=== PATIENT | female | born 1980 | race Caucasian/White ===

== ENCOUNTER 2020-10-08 19:22 | Emergency (ER) | payer BC, SELFPAY ==
--- NOTE | ~2020-10-08 | CT_ITS ---
EXAMINATION: CT ABDOMEN AND PELVIS WITH CONTRAST CLINICAL INFORMATION: Right lower quadrant pain COMPARISON: CT of the chest abdomen pelvis 12/29/2018 TECHNIQUE: Multidetector volumetric images were obtained from the superior aspect of the liver through the pubic symphysis following administration 85 mL of Omnipaque 350 intravenous contrast. Sagittal and coronal reformatted images were obtained on the technologist's workstation. Oral contrast: No This CT examination was performed using dose optimization techniques as appropriate, variously including the following: *Automated exposure control *Adjustment of mA and/or kV according to patient size (this includes techniques or standardized protocols for targeted exams where dose is matched to indication/reason for exam; i.e. extremities or head) *Use of iterative reconstruction technique DLP: 538 mGy-cm FINDINGS: LUNG BASES: The visualized lung bases are unremarkable. LIVER, GALLBLADDER, AND BILIARY TREE: The liver is normal in size, shape, and attenuation. No focal hepatic lesion or biliary ductal dilatation is present. The gallbladder is unremarkable with no evidence of radiopaque gallstones, gallbladder wall thickening, or obvious pericholecystic inflammatory changes. PANCREAS: Unremarkable. SPLEEN: Unremarkable. ADRENAL GLANDS: Unremarkable. KIDNEYS AND URETERS: The kidneys are normal in size, shape, and attenuation. No hydronephrosis, hydroureter, or calculi seen. No perinephric stranding. BLADDER: Unremarkable. GASTROINTESTINAL TRACT: No acute abnormality. There is no bowel wall thickening /edema. There is no bowel obstruction. The cecum is mobile flipped under the hepatic flexure but there is no mesenteric twist or volvulus. There is a moderate to large volume of stool in the colon. The appendix is normal. The small bowel loops are unremarkable. The stomach is normal. There is no hiatal hernia. ABDOMINAL WALL: No significant hernia is appreciated. LYMPH NODES: Normal. VASCULAR: Unremarkable. PELVIC VISCERA: Unremarkable. OSSEOUS STRUCTURES: Unremarkable. CT/CT abdomen pelvis w con IMPRESSION: No acute abnormality CT scan abdomen pelvis.
[2020-10-08 19:37] VITALS: BP 164/96; PULSE 73; RESP 18; TEMP 36.9; O2SAT 96; BMI 26.9
--- NOTE | 2020-10-08 21:23 | ED.ABDPAIN ---
HPI - Abdominal Pain General Chief Complaint: Abdominal Pain Stated Complaint: pelvic pain Time Seen by Provider: 10/08/20 20:55 Source: patient Mode of arrival: ambulatory Limitations: no limitations History of Present Illness HPI narrative: Patient comes emergency room complaining of right lower quadrant pain. Patient states that the pain started 4 days ago in the left lower quadrant, states she was doing squats, she thinks she pulled a muscle. Patient was starting to heal. However, today, patient went back to the gym, she did a Burpee, when she extended her legs backwards, she felt an intense sharp right lower quadrant pain. Patient states that she has been nauseous, denies any vomiting diarrhea, reporting 10/10 pain in the right lower quadrant. MD elicited complaint: abdominal pain Related Data Previous Rx's Medication Instructions Recorded baclofen 10 mg PO TID PRN #10 tab 10/08/20 tramadol 50 mg PO Q8H PRN #10 tab 10/08/20 Allergies Allergy/AdvReac Type Severity Reaction Status Date / Time ibuprofen Allergy Hives Verified 10/08/20 19:42 Review of Systems Review of Systems Constitutional : No Weight loss, No Fever, No Chills, No Night Sweats, No Fatigue, No Malaise ENT/Mouth : No Hearing loss, No Ear Pain, No Nasal Congestion, No Sinus Pain, No Hoarseness, No sore throat, No Rhinorrhea, No Swallowing Difficulty Eyes: No Eye Pain, No Swelling, No Redness, No Foreign Body, No Discharge, No Vision Changes Cardiovascular : No Chest Pain, No SOB, No Dyspnea on Exertion, No Orthopnea, No Edema, No Palpitations Respiratory : No Cough, No Sputum, No Wheezing, No Smoke Exposure, No Dyspnea Gastrointestinal : Complaining of Nausea, No Vomiting, No Diarrhea, No Constipation, complaining of right lower quadrant pain, seems worse with any movement., No Hematochezia, No Melena Genitourinary : no irregular bleeding, No Dysuria, No Urinary Frequency, No Hematuria, No Urinary Incontinence, No Urgency, No Flank Pain, No Urinary Flow Changes, No Hesitancy Musculoskeletal : No joint pain, No Myalgias, No Joint Swelling Skin : No Skin Lesions, No rash Neuro : No Weakness, No Numbness, No Paresthesias, No Loss of Consciousness, No Dizziness, No Headache Psych : No Anxiety/Panic, No Depression, No SI/HI/AH/VH, No Social Issues, Heme/Lymph: No Bruising, No Bleeding,No Lymphadenopathy Endocrine : No Polyuria, No Polydipsia, No Temperature Intolerance Physical Exam Vital Signs: Vital Signs: Last Vital Signs Temp 98.4 F 10/08/20 19:37 Pulse 73 10/08/20 19:37 Resp 18 10/08/20 19:37 BP 164/96 H 10/08/20 19:37 Pulse Ox 96 10/08/20 19:37 Body Mass Index 26.9 Appearance: Alert. Oriented X3. No acute distress. Eyes: Pupils equal, round and reactive to light. ENT: Pharynx normal. Neck: Normal inspection. Neck supple. No lymph nodes noted. No crepitus CVS: Normal heart rate and rhythm. Pulses normal. Normal S1 and S2 Respiratory: No respiratory distress. Breath sounds normal. No Wheezing. No rales Abdomen: Soft and nontender. No rigidity. No distention. good BS x4 Skin: Skin warm and dry. Normal skin color. Normal skin turgor. Extremities: No lower extremity edema. No lower extremity edema. No Lacerations. No Rash Neuro: Oriented X 3. No motor deficit. No sensory deficit. Moving all extermities. No slurred speech. Course Course Course Narrative: Patient is feeling better, no acute findings on the CT scan. Patient likely has a musculoskeletal injury. MDM - Abdominal Pain Lab Data Result diagrams: 10/08/20 21:38 10/08/20 21:38 Labs: Lab Results 10/08/20 10/08/20 Range/Units 21:38 21:38 WBC 10.7 (4.8-10.8) X10*3/uL RBC 4.10 L (4.20-5.50) X10*6/uL Hgb 12.9 (12.0-16.0) g/dl Hct 38.0 (37-47) % MCV 92.7 (80-98) fL MCH 31.5 (27.0-33.0) pg MCHC 33.9 (31.0-35.0) g/dl RDW 12.1 (11.0-16.0) % Plt Count 291 (160-400) X10*3/uL MPV 10.2 (9.4-12.3) fL Immature Gran % (Auto) 0.3 (0.0-0.4) % Neut % (Auto) 74.4 H (45-73) % Lymph % (Auto) 17.4 L (20-40) % [place] % (Auto) 6.7 (2-11) % Eos % (Auto) 0.9 (0-4) % Baso % (Auto) 0.3 (0-2) % Lymph # (Auto) 1.9 (1.2-4.9) X10*3/uL [place] # (Auto) 0.7 (0.1-1.2) X10*3/uL Eos # (Auto) 0.1 (0.0-0.4) X10*3/uL Baso # (Auto) 0.0 (0.0-0.2) X10*3/uL Abs Immat Gran (auto) 0.03 (0.00-0.03) X10*3/uL Absolute Neuts (auto) 8.0 (2.0-8.3) X10*3/uL Absolute Nucleated RBC 0.000 (0.0-0.012) X10*3/uL Nucleated RBC % (auto) 0.0 (0.0-0.2) /100WBC Sodium 139 (135-145) mmol/L Potassium 4.1 (3.3-5.1) mmol/L Chloride 108 (96-108) mmol/L Carbon Dioxide 22 (22-29) mmol/L Anion Gap 13 (12-20) BUN 16 (9-16) mg/dL Creatinine 0.78 (0.5-1.4) mg/dL Estim Creat Clear Calc 85.0 Estimated GFR > 60 Random Glucose 88 (60-115) mg/dL Calcium 9.2 (8.4-10.2) mg/dL Total Bilirubin 0.4 (0.0-1.0) mg/dL Direct Bilirubin 0.2 (0.0-0.5) mg/dL AST 32 H (5-31) U/L ALT 44 H (0-31) U/L Alkaline Phosphatase 61 (39-117) U/L Total Protein 6.6 (6.5-8.0) g/dL Albumin 4.0 (3.5-5.0) g/dL Beta HCG, Quant < 2 mIU/mL Discharge Plan Discharge Clinical Impression: Abdominal muscle strain Qualifiers: Encounter type: initial encounter Qualified Code(s): S39.011A - Strain of muscle, fascia and tendon of abdomen, initial encounter Patient Disposition: Home, Self-Care Instructions: Muscle Strain (ED) Additional Instructions: Please follow-up with your primary care physician tomorrow. If you have any worsening or new symptoms, please return to the emergency room or call 911 Prescriptions: New tramadol 50 mg tablet 50 mg PO Q8H PRN (Reason: pain) Qty: 10 RF: 0 baclofen 10 mg tablet 10 mg PO TID PRN (Reason: muscle pain) Qty: 10 RF: 0 PMFSH Past Medical History Medical History H/O fracture of humerus Migraine Surgical History H/O tubal ligation Social History Social History Advance Directives: No Advance Directives Information Provided: No Patient : No
[2020-10-08 21:43] LABS: Basophils Percent Auto 0.3 % (0-2); Eosinophils Absolute Auto 0.1 X10*3/uL (0.0-0.4); Eosinophils Percent Auto 0.9 % (0-4); Hemoglobin 12.9 g/dl (12.0-16.0); Imm Gran Abs Auto 0.03 X10*3/uL (0.00-0.03); Imm Gran Pct Auto 0.3 % (0.0-0.4); Lymphocytes Absolute Auto 1.9 X10*3/uL (1.2-4.9); Lymphocytes Percent Auto 17.4 % (20-40); MANUAL DIFF FLAG NO; Mean Corpuscular HGB Conc 33.9 g/dl (31.0-35.0); Mean Corpuscular Hemoglobin 31.5 pg (27.0-33.0); Mean Corpuscular Volume 92.7 fL (80-98); Mean Platelet Volume 10.2 fL (9.4-12.3); Monocytes Absolute Auto 0.7 X10*3/uL (0.1-1.2); Monocytes Percent Auto 6.7 % (2-11); Neutrophils Percent Auto 74.4 % (45-73); Platelet Count 291 X10*3/uL (160-400); Red Cell Distribution Width 12.1 % (11.0-16.0); White Blood Count 10.7 X10*3/uL (4.8-10.8)
[2020-10-08] MEDS: Morphine Sulfate 4 MG/ML CARTRIDGE IVPUSH (21:45)
[2020-10-08] MEDS: ondansetron HCL 4 MG/2 ML VIAL IVPUSH (21:45)
[2020-10-08 22:10] LABS: Alanine Aminotransferase 44 U/L (0-31); Alkaline Phosphatase 61 U/L (39-117); Anion Gap 13 (12-20); Aspartate Amino Transferase 32 U/L (5-31); Bilirubin Direct 0.2 mg/dL (0.0-0.5); Bilirubin Total 0.4 mg/dL (0.0-1.0); Blood Urea Nitrogen 16 mg/dL (9-16); Calcium 9.2 mg/dL (8.4-10.2); Carbon Dioxide 22 mmol/L (22-29); Chloride 108 mmol/L (96-108); Estimated Glomerular Filt Rate > 60; Glucose Random 88 mg/dL (60-115); Potassium 4.1 mmol/L (3.3-5.1); Sodium 139 mmol/L (135-145); Total Protein 6.6 g/dL (6.5-8.0)
[2020-10-08 23:21] LABS: HCG Quantitative < 2 mIU/mL
[2020-10-08] MEDS: iohexoL 350 MG/ML 100 ML INFUS..BTL 85 ML IV (23:22)
== END 2020-10-09 00:04 | disposition home or self-care (01) ==
PROVIDERS: Emergency Provider Emergency Medicine
DX: S39.011A Strain of muscle, fascia and tendon of abdomen, initial encounter (principal); X58.XXXA Exposure to other specified factors, initial encounter; Y93.B9 Activity, other involving muscle strengthening exercises; Y92.9 Unspecified place or not applicable; Y99.9 Unspecified external cause status
CPT/HCPCS: 36415; 74177; 80048; 80076; 84702; 85025; 96374; 96375; 99283; 99284; J2270; J2405; Q9967

== ENCOUNTER 2022-11-02 13:25 | Outpatient (AMB) | payer BC, SELFPAY ==
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
[2022-11-02 13:39] VITALS: BP 138/94; PULSE 76; O2SAT 99; BMI 27.5
== END 2022-11-02 14:31 | disposition home or self-care (01) ==
PROVIDERS: Visit Provider Nurse Practitioner Family
DX: G43.109 Migraine with aura, not intractable, without status migrainosus (principal); G43.009 Migraine without aura, not intractable, without status migrainosus; G47.9 Sleep disorder, unspecified; I10 Essential (primary) hypertension
CPT/HCPCS: 99204

== ENCOUNTER → 2022-11-02 13:25 | Outpatient (BNVA) | payer BC, SELFPAY | PROVIDERS: Visit Provider Nurse Practitioner Family ==

== ENCOUNTER 2023-02-09 14:02 | Outpatient (AMB) | payer BC, SELFPAY ==
--- NOTE | 2023-02-09 14:03 | MHC.OFFVIS ---
Intake Vital Signs 02/09/23 14:08 Height 5 ft 2 in Weight 153 lb BMI 28.0 BP 152/104 H Blood Pressure Location Rt brachial Position Sitting Pulse 103 H Pulse Source Pulse Oximeter Pulse Oximetry (%) 99 Oxygen Delivery Method Room Air Intake Visit Reasons: 3m follow up Worsening Migraines-LVM Intake Note: Patient presents for 3 month follow up worsening migraines Patient states I went a month a half with one,last one was 3 days ago. Allergies Seasonal Allergies Allergy (Unknown, Verified 02/09/23 14:10) Swelling ibuprofen Allergy (Verified 02/09/23 14:10) Hives Medication List - Last Reconciled 02/09/23 by CRISTINA Orona eletriptan take 1 tab at onset of headache; if no relief, may repeat 1 tab after at least 2 hrs; max = 2 tabs/24 hrs orally PRN; 30 days erenumab-aooe (Aimovig Autoinjector) 140 mg subcut ONCE 30 days rimegepant (Nurtec ODT) 75 mg PO ONCE PRN 30 days rizatriptan 5 - 10 mg (0.5 - 1 x 10 mg) PO Q2H PRN 21 days sumatriptan succinate 0 mg PO verapamil ER 100 mg PO BEDTIME 30 days zolmitriptan (Zomig) take 1 tab at onset of headache; if no relief, may repeat 1 tab after at least 2 hrs; max = 2 tabs/24 hrs PO 21 days HPI HPI Comments History of Present Illness Details 42-yr-old female presents for f/u visit. Pt denies any significant interval medical changes. Pt reports that she has had 5 migraine days in the last month. Pt was on Trudhessa sample in early Sep for prolonged migarine attack, not responsive to her usual Rizatriptan. Trudhessa was effective. Pt was also started on Nurtec, which is usually helpful, but not always. Today, she reports she believes she has identified a strong migraine trigger. She reports she is prone to developing acne that never ruptures/expresses. She describes specifically developing large, red, painful lumps near bilateral peak regions, which can last for days to weeks. She once had one acne in her forehead that she attempted to pop/express. She was not able to pop it but trying to express it caused her to develop a cellulitis. These lesions are often a/w more severe headache. She states she also is prone to allergic skin reactions on her buttocks, which she attributes to her fabric softener use. 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 [facility] Medical History (Updated 02/09/23 @ 14:33 by CRISTINA Orona) Erythema nodosum Depression H/O fracture of humerus Migraine Surgical History History of surgery on arm Hx of tonsillectomy H/O tubal ligation Family History Mother Hypertension Rheumatoid arthritis Vaginal cancer Father Myocardial infarction Hypertension Hyperlipidemia Maternal Grandmother Rheumatoid arthritis Dementia Maternal Grandfather COPD (chronic obstructive pulmonary disease) Paternal Grandfather CHF (congestive heart failure) Social History Alcohol intake: current Alcohol intake frequency: a few times a month Patient Tobacco Use Status: Former Tobacco user Substance Use Type: Marijuana Review of Systems Const All systems reviewed & are unremarkable except as noted in HPI and below Physical Exam Vital Signs: Last Vital Signs Pulse 103 H 02/09/23 14:08 BP 152/104 H 02/09/23 14:08 Pulse Ox 99 02/09/23 14:08 Oxygen Delivery Method Room Air 02/09/23 14:08 BMI result Body Mass Index 28.0 Const General: cooperative and no acute distress Orientation/consciousness: patient oriented x3 HEENT Head: Yes normocephalic Resp Effort & Inspection: normal respiratory effort and able to speak in complete sentences Neuro General: patient oriented x3, gait normal and CN's II-XI intact bilaterally Cognition (Neuro): normal cognition Motor exam (neuro): 5/5 motor strength present throughout Psych Appearance: grossly normal Mental Status: mental status grossly normal Speech and movement: Normal speech and movement present Affect: normal affect Attitude: cooperative Thought process: Normal thought process present Thought content: Normal thought content present Insight: Good insight present (Psych) Judgement: Good judgement present (Psych) Assessment & Plan Assessment & Plan (1) Acne: Code(s): L70.9 - Acne, unspecified Plan For skin issues- will request derm consult. For overall headache management: Discussed importance of good self-care, including but not limited to maintaining a healthy diet, adequate fluid intake, adequate sleep, and engaging in regular physical activity. For headache triggers: Track headaches, especially after any treatment regimen changes. [employer] is one of many headache tracking apps. ? For acute headache treatment: Rizatriptan 10mg tab. Nurtec ODT 75mg Nerivio device Previous acute migraine medication trials: Sumatriptan 50mg- ineffective Acute migraine medication contraindications: None at this time ? For headache prevention medication: Verapamil ER 100mg qhs. Will check EEG priror to dose any future increase. Continue Aimovig 140mg sc q month Previous migraine prevention medication trials: Amitriptyline- ineffective, Propranolol- ineffective, Topiramate- ineffective Migraine prevention medication contraindications: None at this time ? ? Pt to follow-up in 3 months or sooner prn. Orders: Referrals Dermatology Referral L52 - Erythema nodosum, L70.9 - Acne, unspecified Medications: New dihydroergotamine (Trudhesa) 1 actuation in each nostril x1, may repeat x's 1 after 1 hr (max 4 actuations per day, or 6 per week) intranasally once PRN; 1 actuation in each nostril x1, may repeat x's 1 after 1 hr (max 4 actuations per day, or 6 per week) 28 days 4 mL 6RF migraine headache Coding Level of Care Code Est Pt Level 4 (69059) Diagnoses Acne L70.9
[2023-02-09 14:08] VITALS: BP 152/104; PULSE 103; O2SAT 99; BMI 28.0
== END 2023-02-09 14:47 | disposition home or self-care (01) ==
PROVIDERS: PCP Internal Medicine; Visit Provider Nurse Practitioner Family
DX: L70.9 Acne, unspecified (principal)
CPT/HCPCS: 99214

== ENCOUNTER → 2023-02-09 14:02 | Outpatient (BNVA) | payer BC, SELFPAY | PROVIDERS: PCP Internal Medicine; Visit Provider Nurse Practitioner Family ==

== ENCOUNTER 2023-02-10 08:34 | Outpatient (REF) | payer BC, SELFPAY ==
--- NOTE | ~2023-02-10 | MR_ITS ---
EXAMINATION: MR BRAIN WITHOUT CONTRAST CLINICAL INFORMATION: Headache COMPARISON: None. TECHNIQUE: MRI of the brain was obtained using routine sequences without contrast. FINDINGS: No acute infarct. No acute intracranial hemorrhage or extra-axial fluid collection. The ventricles and sulci are normal in size and configuration without significant volume loss or hydrocephalus. Single punctate T2 FLAIR hyperintense focus in the left frontal deep white matter of no clinical significance. No mass lesion, mass effect, or herniation pattern. Normal intracranial arterial and dural venous sinus flow voids. Normal appearance of the midline structures. Susceptibility artifact presumably from mascara obscures assessment of the globes Trace ethmoid air cell mucosal thickening. No mastoid effusion. Proteinaceous retention cyst in the right paramidline nasopharynx embedded within adenoidal tonsillar tissue. Normal marrow signal. MR/MR head/brain wo con IMPRESSION: Unremarkable brain MRI.
== END 2023-02-10 08:35 | disposition home or self-care (01) ==
LOC: HO.MRI 08:34
PROVIDERS: PCP Internal Medicine; Visit Provider Nurse Practitioner Family
DX: R51.9 Headache, unspecified (principal); I10 Essential (primary) hypertension
CPT/HCPCS: 70551

== ENCOUNTER 2023-06-14 14:42 | Outpatient (AMB) | payer BC, SELFPAY ==
--- NOTE | 2023-06-14 14:43 | A.OFFVIS_ITS ---
Intake Intake Visit Reasons: 3m follow up Worsening Migraines-Confirmed Intake Note: Patient states she still getting migraines but not as often Allergies Seasonal Allergies Allergy (Unknown, Verified 06/14/23 14:44) Swelling ibuprofen Allergy (Verified 06/14/23 14:44) Hives Medication List - Last Reconciled 06/14/23 by CRISTINA Orona dihydroergotamine (Trudhesa) 1 actuation in each nostril x1, may repeat x's 1 after 1 hr (max 4 actuations per day, or 6 per week) intranasally once PRN; 1 actuation in each nostril x1, may repeat x's 1 after 1 hr (max 4 actuations per day, or 6 per week) 28 days eletriptan take 1 tab at onset of headache; if no relief, may repeat 1 tab after at least 2 hrs; max = 2 tabs/24 hrs orally PRN; 30 days erenumab-aooe (Aimovig Autoinjector) 140 mg subcut ONCE 30 days rimegepant (Nurtec ODT) 75 mg PO ONCE PRN 30 days rizatriptan 5 - 10 mg (0.5 - 1 x 10 mg) PO Q2H PRN 21 days sumatriptan succinate 0 mg PO verapamil ER 100 mg PO BEDTIME 30 days zolmitriptan (Zomig) take 1 tab at onset of headache; if no relief, may repeat 1 tab after at least 2 hrs; max = 2 tabs/24 hrs PO 21 days HPI HPI Comments History of Present Illness Details 42-yr-old female presents for f/u televi giancarlo visit via [facility]. Pt denies any significant interval medical changes. Pt is having 1-2 migraine days per week. She still feels these are triggered by her facial/scalp/forehead acne/lesions. Notes a h/o sarcoidosis. Has dermatology consult in June. She is scheduled for retention cyst in the right paramidline nasopharynx embedded within adenoidal tonsillar tissue. Compliant w/ B2 and Mag. She is using Sumatriptan- helps if taken at the 1st sign. Trudhessa was very effective. She did stop the Aimovig- unsure if it was very effective and cost was $105/month. Her PCP changed her Verapamil to Lisinopril as her BP has been elevated. BP r unning 130-140s/90s. Baseline headache characteristics: Prodrome: Photophobia, strange taste in her mouth- hours before the headache Aura: Several times has seen orbs Severe, Throbbing, Mid-frontal and eye pain a/w photophobia, phonophobia, nausea, vomiting, brain fog, activity intolerance, fatigue ] [facility] Medical History (Updated 03/23/23 @ 08:07 by CRISTINA Orona) Erythema nodosum Depression H/O fracture of humerus Migraine Surgical History History of surgery on arm Hx of tonsillectomy H/O tubal ligation Family History Mother Hypertension Rheumatoid arthritis Vaginal cancer Father Myocardial infarction Hypertension Hyperlipidemia Maternal Grandmother Rheumatoid arthritis Dementia Maternal Grandfather COPD (chronic obstructive pulmonary disease) Paternal Grandfather CHF (congestive heart failure) Social History Alcohol intake: current Alcohol intake frequency: a few times a month Patient Tobacco Use Status: Former Tobacco user Substance Use Type: Marijuana Physical Exam Const General: cooperative and no acute distress Orientation/consciousness: patient oriented x3 Resp Effort & Inspection: normal respiratory effort and able to speak in complete sentences Neuro General: patient oriented x3 Cognition (Neuro): normal cognition Psych Appearance: grossly normal Mental Status: mental status grossly normal Speech and movement: Normal speech and movement present Affect: normal affect Attitude: cooperative Assessment & Plan Assessment & Plan (1) Migraine without aura: Code(s): G43.009 - Migraine without aura, not intractable, without status migrainosus (2) Migraine with aura: Code(s): G43.109 - Migraine with aura, not intractable, without status migrainosus (3) HTN (hypertension): Code(s): I10 - Essential (primary) hypertension (4) Acne: Code(s): L70.9 - Acne, unspecified (5) Cyst of nasopharynx: Comment: Proteinaceous retention cyst in the right paramidline nasopharynx embedded within adenoidal tonsillar tissue Code(s): J39.2 - Other diseases of pharynx Plan For skin issues- derm consult. ? For overall headache management: Continue to optimize good self-care, including but not limited to maintaining a healthy diet, adequate fluid intake, adequate sleep, and engaging in regular physical activity. For headache triggers: Track headaches, especially after any treatment regimen changes. Migraine [employer] is one of many headache tracking apps. ? For acute headache treatment: Sumatriptan prn. Rizatriptan 10mg tab. Nurtec ODT 75mg Nerivio device Hold Trudhessa or other DHE tx at this time until BP is better controlled. Previous acute migraine medication trials: Sumatriptan 50mg- ineffective Acute migraine medication contraindications: None at this time ? For headache prevention medication: Pt stopped Verapamil ER 100mg qhs. Continue Lisinopril per PCP. Continue Vitamin B2 and Mag. Hold Aimovig 140mg sc q month- not effective after 3 months. Previous migraine prevention medication trials: Amitriptyline- ineffective, Propranolol- ineffective, Topiramate- ineffective Migraine prevention medication contraindications: None at this time Future considerations- CGRP receptor agonsit MaB, Vyepti, Botox. ? ?Pt to follow-up in 3 months or sooner prn. Medications: New lisinopril PO Discontinued erenumab-aooe (Aimovig Autoinjector) Discontinued Reason: Patient no longer taking 140 mg subcut ONCE 30 days 1 mL 6RF zolmitriptan (Zomig) Discontinued Reason: Patient no longer taking take 1 tab at onset of headache; if no relief, may repeat 1 tab after at least 2 hrs; max = 2 tabs/24 hrs PO 21 days 12 tabs 3RF verapamil ER Discontinued Reason: Doctor's Order 100 mg PO BEDTIME 30 days 30 caps 3RF eletriptan Discontinued Reason: Doctor's Order take 1 tab at onset of headache; if no relief, may repeat 1 tab after at least 2 hrs; max = 2 tabs/24 hrs orally PRN; 30 days 12 tabs 3RF migraine headache rimegepant (Nurtec ODT) max 1 tab per day Discontinued Reason: Patient no longer taking 75 mg PO ONCE 30 days PRN 16 tabs 6RF migraine headache dihydroergotamine (Trudhesa) Discontinued Reason: Doctor's Order 1 actuation in each nostril x1, may repeat x's 1 after 1 hr (max 4 actuations per day, or 6 per week) intranasally once PRN; 1 actuation in each nostril x1, may repeat x's 1 after 1 hr (max 4 actuations per day, or 6 per week) 28 days 4 mL 6RF migraine headache Telehealth Telehealth Location of provider rendering services: practice address Location of patient: address on file Patient Identification confirmed using: Name, : Yes Telehealth method: voice only Patient verbally consented to treatment: Yes Patient verbally consented to billing insurance company: Yes Patient informed of any privacy concerns related to visit: Yes Minutes spent on Phone/Video with Pt.: 30 Coding Level of Care Code Tele Est Pt Level 4 (02056) Diagnoses Migraine without aura G43.009 Migraine with aura G43.109 HTN (hypertension) I10 Acne L70.9 Cyst of nasopharynx J39.2
== END 2023-06-15 09:27 | disposition home or self-care (01) ==
LOC: HO.HSMS 14:43
PROVIDERS: PCP Internal Medicine; Visit Provider Nurse Practitioner Family
DX: G43.009 Migraine without aura, not intractable, without status migrainosus (principal); G43.109 Migraine with aura, not intractable, without status migrainosus; I10 Essential (primary) hypertension; L70.9 Acne, unspecified; J39.2 Other diseases of pharynx
CPT/HCPCS: 99443

== ENCOUNTER → 2023-06-14 14:42 | Outpatient (BNVA) | payer BC, SELFPAY | PROVIDERS: PCP Internal Medicine; Visit Provider Nurse Practitioner Family | DX: L70.9 Acne, unspecified (principal); L52 Erythema nodosum ==

== ENCOUNTER 2024-06-18 22:31 | Emergency (ER) | payer BC, SELFPAY ==
--- NOTE | ~2024-06-18 | XR_ITS ---
CLINICAL HISTORY: Pain Exam: AP and lateral views of the right knee. Comparison: None. Findings: Bony alignment is anatomic. No fracture. Joint spaces are well preserved. No significant osteophyte formation. No joint effusion. Impression: No fracture. This document has been electronically signed by: Ronaldo Hummel MD on 06/18/2024 23:10:58
[2024-06-18 22:39] VITALS: BP 148/73; PULSE 73; O2SAT 98
[2024-06-18 23:17] VITALS: BP 139/95; PULSE 99; RESP 18; TEMP 37; O2SAT 98; BMI 28.2
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
--- NOTE | 2024-06-19 00:32 | PC.NURSE ---
This nurse was not the primary nurse, print out discharge instructions for pt. pt verbalized understanding, no sign of distress. notified charge nurse.
[2024-06-19 00:33] VITALS: BP 139/95; PULSE 99; RESP 18; TEMP 37; O2SAT 98
== END 2024-06-19 00:33 | disposition home or self-care (01) ==
PROVIDERS: Emergency Provider Emergency Medicine Emergency Medical Services; PCP Internal Medicine
DX: S83.91XA Sprain of unspecified site of right knee, initial encounter (principal); Y04.8XXA Assault by other bodily force, initial encounter; Y93.9 Activity, unspecified; Y92.9 Unspecified place or not applicable; Y99.8 Other external cause status
CPT/HCPCS: 73560; 99282; 99283

== ENCOUNTER → 2024-06-18 22:40 | Outpatient (BNV) | payer BC, SELFPAY | PROVIDERS: Emergency Provider Emergency Medicine Emergency Medical Services; PCP Internal Medicine; Visit Provider Radiology Diagnostic Radiology | DX: M25.561 Pain in right knee (principal) | CPT/HCPCS: 73560 ==